=== PATIENT | male | born 1975 ===

== ENCOUNTER 2016-09-22 14:44 | Inpatient (IN) | payer BC, OTHER ==
[~2016-09-22] VITALS: Ht 177.8 cm; Wt 86.2 kg
--- NOTE | 2016-12-06 18:10 | NUR ---
Initial assessment note Pt oriented to unit by RECEIVING TANK OPERATOR. Pt ambulated with a steady gait. Skin check completed, no open skin noted. Initial VS: BP 129/92, HR 61, R 18, T 98.1*, SpO2 98% on RA, 0/10 pain. Height: 5'10'' Weight: 190 pounds. Pt has NKA, on a regular diet, full code. Pt denies any PMH, states that he does not know who his PCP is. Does not want a pna shot. Agrees to HIV test. Pt does not take any home medications. Denies any history of seizure. Pt states that he was in treatment 3 months ago. Pt states that he recently relapsed 2.5 weeks ago. Pt uses: heroin- 0.5 G inh daily x 2.5 weeks. Pt states that he first used at the age of 21, became a "heavy user" at the age of 35. Pt states that he only smokes cigarettes while he is in detox. Dr Medrano notified of admission. Pt was unable to provide a urine for a urine drug test at this time. Pt has no complaints, all needs addressed, will endorse SBAR to oncoming shift.
[2016-12-06 18:18] VITALS: BP 129/92
[2016-12-06 20:00] VITALS: BP 125/82
[2016-12-06 20:01] LABS: *AMPHETAMINE, URINE NEGATIVE (NEGATIVE); *BARBITURATE, URINE NEGATIVE (NEGATIVE); *CANNABINOID, URINE NEGATIVE (NEGATIVE); *COCCAINE, URINE NEGATIVE (NEGATIVE); *OPIATE, URINE POSITIVE (NEGATIVE); *PHENCYCLIDINE SCREEN,URINE NEGATIVE (NEGATIVE)
--- NOTE | 2016-12-06 20:15 | NUR ---
2014 ADMISSION NOTE: Patient fully admitted to room # 329A for Heroin withdrawal. Patient received awake, alert and ambulating back to his room from [facility]. Gait is steady and sure, though a bit slow. Patient responds to nurse's greeting and introduction with a very flat, " Okay, with good eye contact. Patient's color is pink and his skin is clean, warm, dry and intact. Multiple black ink tatoos noted on upper body and bilateral arms. Patient is oriented to person, place, day, date and his personal situation. Easily reoriented to time. Patient's lung sounds are clear bilaterally and active bowel sounds are noted X 4 abdominal Quads, per auscultation. Patient is 5 feet and 10 inches tall and he weighs 190 lbs. Patient denies any allergies or seizure history. Patient states further that he has no pre-existing medical or psychiatric conditions and he currently has no PCP. Patient denies any pain or any other discomforts at this time and he states that he has eaten a little and taken fluids ad arielle since arriving here at [facility] and he denies any gastric issue so far. Patient states that he is admitted this evening for daily Heroin use, 1/2 gram, which he smokes. Last use was this AM, 12/06/16, 1/2 gram. Patient states that he has been using heroin at this rate for the past 3 weeks, though he states that he has been using heroin for a total of 6 years, on and off. Patient denies using any other drugs, recreational or prescribed and he has brought no medications with him. Patient states that his longest period of sobriety was 7 months in 2015. Patient's treatment history is: 1) [facility], 90 days, [place], [place]. 2016 2) [facility], 4 months, [place] 2015 3) [facility], 3 weeks, [place] 2015 4) [facility], 30 days, [place], [place] 2014 5) [facility], 30 days, [place] 2014. Patient states that he does go to and he does have a Sponsor currently. Patient states that his internal motivator for getting clean is his family and he is determined to do that this admission. Patient is cooperative, verbally appropriate though overall mood/affect is very flat and slightly withdrawn. Patient is oriented to his room, nurse call light and his immediate surroundings. Patient voices no requests at this time and his condition is stable. Bed is locked and in lowest position, bed rails are up X 2 and call light within patient's easy reach.
[2016-12-06] MEDS ORDERED: diphenhydrAMINE 50 MG CAPSULE PO PRN (21:45)
[2016-12-06] MEDS ORDERED: ACETAMINOPHEN 325 MG TABLET PO PRN (21:45)
[2016-12-06] MEDS ORDERED: HYDROXYZINE PAMOATE 25 MG CAPSULE PO PRN (21:45)
[2016-12-06] MEDS ORDERED: LOPERAMIDE HCL 2 MG CAPSULE PO PRN ×2 (21:45)
[2016-12-06] MEDS ORDERED: METHOCARBAMOL 750 MG TABLET PO PRN (21:45)
[2016-12-06] MEDS ORDERED: IBUPROFEN 400 MG TABLET PO PRN (21:45)
[2016-12-06] MEDS ORDERED: BUPRENORPHINE HCL 2 MG TAB.SUBL SL PRN (21:45)
[2016-12-06] MEDS ORDERED: PROMETHAZINE HCL 25 MG/1 ML VIAL IM PRN (21:45)
[2016-12-06] MEDS ORDERED: ONDANSETRON ODT 4 MG TAB.RAPDIS SL PRN (21:45)
[2016-12-06] MEDS ORDERED: MIRALAX 17 GM POWD.PACK PO PRN (21:45)
[2016-12-06] MEDS ORDERED: MAG HYDROX/AL HYDROX/SIMETH 30 ML LIQUID UDC PO PRN (21:45)
[2016-12-06] MEDS ORDERED: CLONIDINE HCL 0.1 MG TABLET PO PRN (21:45)
[2016-12-06 23:12] LABS: ALANINE AMINOTRANSFERASE 48 U/L (16-63); ALBUMIN 3.9 g/dL (3.4-5.0); ALKALINE PHOSPHATASE 77 U/L (50-136); AMYLASE 35 U/L (25-115); ASPARTATE AMINOTRANSFERASE 25 U/L (15-37); BILIRUBIN,TOTAL 0.3 mg/dL (0.2-1.0); CARBON DIOXIDE 29 mmol/L (21-32); CHLORIDE 104 mmol/L (98-107); GFR 82 mL/min (>60); GLUCOSE 111 mg/dL (74-106); LIPASE 90 U/L (73-393); MAGNESIUM 1.9 mg/dL (1.8-2.4); POTASSIUM 3.8 mmol/L (3.5-5.1); SODIUM SERUM 139 mmol/L (136-145); TOTAL PROTEIN, SERUM 7.1 g/dL (6.4-8.2); UREA NITROGEN, BLOOD 18 mg/dL (7-18)
[2016-12-06 23:16] LABS: ETHANOL < 3 MG/DL (0-0)
[2016-12-06 23:18] LABS: BASOPHILS % (AUTO) 0.3 % (0.0-2.0); EOSINOPHILS # (AUTO) 0.4 K/uL (0.0-0.7); EOSINOPHILS % (AUTO) 5.9 % (0.0-7.0); HEMOGLOBIN 15.9 g/dL (14.0-18.0); LYMPHOCYTES # (AUTO) 1.8 K/uL (0.8-4.8); LYMPHOCYTES % (AUTO) 30.5 % (20.5-51.5); MEAN CORPUSCULAR HEMOGLOBIN 30.1 uug (27.0-31.0); MEAN CORPUSCULAR HGB CONC 35 g/dL (32.0-37.0); MEAN CORPUSCULAR VOLUME 85.1 fL (82.0-92.0); MONOCYTES # (AUTO) 0.3 K/uL (0.1-1.30); MONOCYTES % (AUTO) 4.2 % (0.0-11.0); NEUTROPHILS # (AUTO) 3.5 K/uL (1.8-8.9); NEUTROPHILS % (AUTO) 59.1 % (38.5-71.5); PLATELET COUNT (AUTO) 233 K/uL (150-450); RED BLOOD CELL COUNT(AUTO) 5.28 MIL/uL (4.70-6.10)
[2016-12-06 23:23] LABS: THYROID STIMULATING HORMONE 0.863 mIU/mL (0.358-3.740)
[2016-12-06 23:37] LABS: HIV-1 p24 ANTIGEN NON REACTIVE (NONREACTIVE); HIV-1/2 ANTIBODY NON REACTIVE (NONREACTIVE)
[2016-12-07] VITALS: BP 117/70
[2016-12-07 04:00] VITALS: BP 111/71
--- NOTE | 2016-12-07 06:30 | NUR ---
0630 Patient slept a total of 5 hours and his total p.o. intake was 902 ml. He had 3 voids and no stools at bathroom. No prn medications given this shift. V/SS afebrile, COWS 2. Patient is presently sleeping soundly in stable condition with eyes closed and respirations quiet, even and unlabored at 14.
[2016-12-07] MEDS ORDERED: ONDANSETRON 4 MG/2 ML VIAL IM PRN (07:15)
[2016-12-07 08:00] VITALS: BP 109/60
--- NOTE | 2016-12-07 08:15 | NUR ---
START OF SHIFT: RECEIVED PT LAYING IN BED WITH EYES CLOSED AND RESPIRATIONS EVEN AND UNLABORED. HE IS EASILY AROUSED AND STATES HE DOES NOT WANT THE MULTIVITAMIN AND DOES NOT WANT TO WAKE UP AND STATES HE NEEDS HIS SLEEP. COWS DEFERRED.BED LOCKED AND IN LOWEST POSITION. CALL ROUSE IN REACH. WILL CONTINUE TO MONITOR.
[2016-12-07] MEDS: MULTIVITAMINS,THERAPEUTIC TABLET PO SCH (08:51)
[2016-12-07] MEDS ORDERED: TUBERCULIN,PURIF.PROT.DERIV. 5 TU/0.1 ML TEST ID ONE (09:00)
--- NOTE | 2016-12-07 10:05 | NUR ---
PPD ADMINISTERED TO LFA. PT CONTINUES TO SLEEP. WILL CONTINUE TO MONITOR.
[2016-12-07 12:00] VITALS: BP 131/64
--- NOTE | 2016-12-07 13:20 | NUR ---
PT IS A/O X 4. HE C/O RESTLESSNESS,ANXIETY,CHILLS,SWEATS AND STOMACH CRAMPS. COWS 12. PRN SUBUTEX ADMINISTERED. WILL MONITOR EFFECTIVENESS.
--- NOTE | 2016-12-07 13:50 | NUR ---
PRN SUBUTEX EFFECTIVE. COWS NOW 10. WILL CONTINUE TO MONITOR.
[2016-12-07 16:00] VITALS: BP 120/75
[2016-12-07] MEDS ORDERED: diphenhydrAMINE 50 MG CAPSULE PO PRN (16:00)
[2016-12-07] MEDS: BUPRENORPHINE HCL 2 MG TAB.SUBL SL SCH ×2 (16:31→21:16)
--- NOTE | 2016-12-07 18:43 | NUR ---
START OF SHIFT NOTE Patient endorsed by outgoing shift nurse. SBAR report received. Patient is a 24 years old male admitted to [facility] on 12/03/2016 for Opioid Dependence, placed on 4 Day Subutex taper. Patient remains complained with treatment plan, medications, and diet regime. NKA, Regular Diet, Full Code, Fall Precautions. Patient denied History of Seizures. Patient denied HI/SI. Past Medical History: Hepatitis C, Substance Use. Patient reported that he use Heroin via IV 3 grams daily during 8 months. Last amount of 2,5 grams was used 12/02/2016. Past hospitalizations/Treatment History: [facility]: one month ago: > 30 days. [facility]: one month ago: > 30 days. Upon assessment patient is alert and oriented x4, speech is clear. COWS 6. Patient c/o increase anxiety, sweats, restlessness, bone and joint aches, stomach cramps. VS: T: 98.3; HR: 70; BP: 110/65; Room Air O2Sat: 95%; RR: 18. Breathing is unlabored and even. Lungs Sounds are clear. BS is active in all x 4 quadrants; Skin is warm and moist by touch. Patient has multiple old abrasion on face, back of neck, and left hand. No open wounds. Patient was educated for safety issues: keep bed in lowest position and locked, rails up x2. Patient returned his Knowledge back by verbalized understanding. All Safety met by hospital policy: Call Light within reach; Bed in lowest position and locked, rails up x2. Will continue to monitor. Addendum: 12/08/16 at 0001 by LISA SMILEY RN Wrong patient: Room 310
--- NOTE | 2016-12-07 18:49 | NUR ---
END OF SHIFT: PT SLEPT LATE THIS AM HE WANTED TO BE LEFT ALONE. HE REPORTED ANXIETY,CHILLS,SWEATS AND RESTLESSNESS WITH A COWS OF 12 AROUND 1300 AND INDUCTION PRN DOSE OF SUBUTEX GIVEN AND EFFECTIVE AEB COWS 10. STARTED PT ON TAPER WHICH STARTED AT 1700. HE STATES HE IS FEELING BETTER DUE TO SUBUTEX LAST COWS 4. HE STAYED IN HIS ROOM MOST OF SHIFT AND HAD VERY LITTLE INTERACTION WITH PEERS. HE CONTINUES TO PRESENT WITH BLUNTED AFFECT AND DEPRESSED MOOD. HE DENIES S/I AND H/I. WILL PASS SHIFT REPORT TO ONCOMING NIGHT NURSE.
--- NOTE | 2016-12-07 18:49 | NUR ---
START OF SHIFT NOTE Patient is a 41 years old male admitted to [facility] on 12/06/2013 for Opioid Dependence, placed on Subutex Taper. NKA, Regular Diet, Fall Precautions. Patient denied History of Seizures. Patient denied history of SI/HI. Past Medical History: Substance Use. Patient reported s Heroin Smokes gram daily during last three weeks, since 11/15/16. Last amount of gram was on 12/06/16. Recent Hospitalizations/Treatment History: "[facility], 90 days, [place], [place], 2016". "[facility], 4 months, [place], [place], 2015". "[facility], # weeks, [place], [place], 2015". "[facility], 30 days, [place], [place], 2014". "[facility], 30 days, [place], 2014". Upon assessment patient is alert and oriented x4, speech is soft. COWS 6. Patient reports increase anxious; mild diffuse discomfort; Patient reported of Nausea. Patient denied Vomitted and Diarrhea. VS:T: 98.0; HR:64; BP:105/67; Room Air O2Sat: 99%; RR: 19. Breathing is unlabored and even. Lungs Sounds are clear. BS is active in all x 4 quadrants. Last BMs today at 10:00. Skin is intact, warm and moist by touch. Patient was educated for safety issues: keep bed in lowest position and locked, rails up x2. Patient returned his Knowledge back by verbalized understanding. All Safety met by hospital policy: Call Light within reach; Bed in lowest position and locked, rails up x2. Will continue to monitor.
[2016-12-07 20:00] VITALS: BP 105/67
[2016-12-08] VITALS: BP 127/81
[2016-12-08 04:00] VITALS: BP 93/55
[2016-12-08 04:06] LABS: HCV AB <0.1 s/co ratio (0.0-0.9); HEPATITIS B CORE AB, IgM Negative (Negative); HEPATITIS B SURFACE AG Negative (Negative)
--- NOTE | 2016-12-08 07:18 | NUR ---
END OF SHIFT NOTE Patient is a 41 years old male admitted to [facility] on 12/06/2013 for Opioid Dependence, placed on Subutex Taper. NKA, Regular Diet, Fall Precautions. Patient denied History of Seizures. Patient denied history of SI/HI. COWS decreased from 6 to 4. Patient presented with anxious; restlessness, mild diffuse discomfort; sweating. VS: T: 98.2; HR:59; BP:93/55; Room Air O2Sat: 99%; RR: 14. Patient participated in activities groups. Patient remains compliant with treatment plan, medications and diet regime. No PRN Medications was administrated during my shift. Patient slept 7 hours; Intake: 946ml; Voided x1. All Safety met by hospital policy: Call Light within reach; Bed in lowest position and locked, rails up x2. Patient endorsed to day shift nurse in stable condition. SBAR report given.
[2016-12-08 08:00] VITALS: BP 120/79
--- NOTE | 2016-12-08 08:00 | NUR ---
START OF SHIFT; RECEIVED PT LAYING IN BED A/O X 4. HE PRESENTS WITH IRRITABLE MOOD AND CONGRUENT AFFECT. HE REPORTS NAUSEA,BODY ACHES,CHILLS,RESTLESSNESS AND ANXIETY. HE REFUSED MVI DUE TO NAUSEA AND STATES " IT WILL UPSET MY STOMACH MORE". PRN ZOFRAN GIVEN FOR NAUSEA. HE IS ALSO REFUSING BREAKFAST.SUBUTEX TAPER IN PROGRESS. COWS 8. WILL MONITOR EFFECTIVENESS OF PRN MEDICATION. WILL CONTINUE TO MONITOR AND PROVIDE SAFE AND SUPPORTIVE ENVIRONMENT.
--- NOTE | 2016-12-08 08:40 | NUR ---
PRN ZOFRAN EFFECTIVE. PT STATES ZOFRAN HELPED HIS NAUSEA AND IT HAS SUBSIDED.
[2016-12-08] MEDS: MULTIVITAMINS,THERAPEUTIC TABLET PO SCH (08:49)
[2016-12-08] MEDS ORDERED: BUPRENORPHINE HCL 2 MG TAB.SUBL SL SCH (09:00)
[2016-12-08 12:00] VITALS: BP 116/65
[2016-12-08] MEDS ORDERED: TRAZODONE 50 MG TABLET PO PRN (12:00)
[2016-12-08] MEDS: BUPRENORPHINE HCL 2 MG TAB.SUBL SL SCH ×2 (14:15→20:08)
[2016-12-08 16:00] VITALS: BP 107/69
--- NOTE | 2016-12-08 19:03 | NUR ---
END OF SHIFT: PT CONTINUES ON SUBUTEX TAPER. HE C/O BODY ACHES AND CHILLS ALONG WITH ANXIETY AND RESTLESSNESS THIS AM. COWS 8 THIS AM. AFFECT IS LESS GUARDED AND HE STATES THE SUBUTEX IS EFFECTIVE. LAST COWS 4. HE INTERACTED WITH PEERS AND ATTENDED ACTIVITIES AND GROUPS. HE VERBALLY EXPRESSED MOTIVATION TOWARD RECOVERY AND IS COMPLIANT WITH MEDS AND TREATMENT PLAN.PPD TO BE READ ON 12/09. ENCOURAGED PROPER NUTRITION AND INCREASED FLUIDS. WILL PASS SHIFT REPORT TO ONCOMING NIGHT NURSE.
[2016-12-08 20:00] VITALS: BP 119/78
--- NOTE | 2016-12-08 20:00 | NUR ---
Start of Shift Pt is a 41 year old male admitted for Opiate dependence, placed on Subutex taper. Pt reported using gram/daily via smoke. NKA, regular diet, fall precautions and full code PMH: pt denies past medical history. Upon assessment, Pt reports anxiety, chills, muscle aches, respirations unlabored, denies SOB/chest pain, skin warm/mildly moist, noted with moderate sweat. Pt denies n/v/d, bowel sounds active x4, abdomen soft. Safety measures in place, Will continue to monitor.
[2016-12-09] VITALS: BP 104/60
--- NOTE | 2016-12-09 | NUR ---
Vital Signs - PRN Administration BP 104/60, pulse 55, SpO2 98%, respirations 16, temp 97.8, no reports of pain 0/10, CIWA 4. Trazodone 50mg PRN administered for sleep. Safety measures in place. Will continue to monitor.
--- NOTE | 2016-12-09 01:00 | NUR ---
PRN Reassessment Upon reassessment, pt is sleeping, Trazodone effective. Respirations unlabored - no distress noted. Safety measures in place. Will continue to monitor.
--- NOTE | 2016-12-09 04:00 | NUR ---
Pt refused to be woken up for VS at this time. Pt was encouraged x3 risks and benefits explained pt continued to refuse. COWS deferred d/t pt sleeping to assess while awake as ordered. Safety measures in place. Will continue to monitor.
--- NOTE | 2016-12-09 07:00 | NUR ---
End of Shift Pt is a 41 year old male admitted for Opiate dependence, placed on Subutex taper. Pt reported using gram/daily via smoke. NKA, regular diet, fall precautions and full code PMH: pt denies past medical history. During shift, pt presented with anxiety, chills, muscle aches, skin flushed/moist/sweaty scheduled taper medications administered, effective in management of s/s of withdrawal as reported by pt. CIWA 5 decreased to CIWA 4. Trazodone 50mg PRN administered for sleep, effective. Pt slept for 7 hours, intake of 355 ml PO and voids x1. VS stable, Pt continues on Subutex taper. Safety measures in place, call light within reach, side rails up x2, bed locked and in low position. Endorsed to day shift nurse.
--- NOTE | 2016-12-09 07:01 | NUR ---
Start of Shift Endorsement received from nightshift nurse. Pt is a 41 y/o male admitted for heroin dependence. Pt has been placed on a 3 week taper, pt is tolerating the taper well AEB COWS 4. PT received PRN Trazodone to help with sleep, medication was effective AEB pt reporting 7 hours of sleep. VS WNL, Full Code. PT is alert and oriented x4. Pt is in STABLE condition at this time. Remains compliant with medication and diet regimen. All needs have been met, All safety measures in place per hospital policy. Bed in lowest position, side rails up x2, call-light within reach. Will continue to monitor Addendum: 12/09/16 at 1858 by HAYDEE ALEMAN RN Pt is on a 4 day Subutex taper not 3 week taper.
[2016-12-09 08:00] VITALS: BP 107/57
[2016-12-09] MEDS: MULTIVITAMINS,THERAPEUTIC TABLET PO SCH (09:42)
[2016-12-09] MEDS: BUPRENORPHINE HCL 2 MG TAB.SUBL SL SCH ×3 (09:42→20:35)
[2016-12-09 12:00] VITALS: BP 127/61
[2016-12-09 16:00] VITALS: BP 120/72
[2016-12-09] MEDS: ESCITALOPRAM OXALATE 10 MG TABLET PO SCH (16:26)
--- NOTE | 2016-12-09 18:55 | NUR ---
End of Shift Endorsement given to nightshift nurse. Pt is a 41 y/o male admitted for heroin dependence. Pt has been placed on a 4 day Subutex taper, pt is tolerating the taper well AEB COWS 3. PT did not receive any PRN medications. Educated pt on importance of developing the necessary tools for sobriety, as well as identifying triggers that cause him to relax. Pt reports readiness for sobriety. Pt participated in groups and activities. Intake: 2100ml, Void x5, BM x1. VS WNL, Full Code. PT is alert and oriented x4. Pt is in STABLE condition at this time. Remains compliant with medication and diet regimen. All needs have been met, All safety measures in place per hospital policy. Bed in lowest position, side rails up x2, call-light within reach. Will continue to monitor
--- NOTE | 2016-12-09 19:14 | NUR ---
Start of shift note Received report from day shift nurse. Pt is a 41 yo male, A+OX4, presenting to [facility] for Opiate dependence. Pt has NKA, is Full Code status, and on Regular diet. Pt is on Fall precautions. Pt denies any medical HX. Pt is on 4 day Subutex taper, tolerated well. No s/s of distress noted at this time. Respirations even and unlabored. Will continue to monitor.
[2016-12-09 20:17] VITALS: BP 125/74
[2016-12-09] MEDS: MAGNESIUM HYDROXIDE 30 ML LIQUID UDC PO PRN (20:45)
--- NOTE | 2016-12-09 20:47 | NUR ---
PRN MOM Pt c/o constipation and requested for PRN MOM. Medication given and tolerated well. Will reassess within 1 HR. Will continue to monitor.
--- NOTE | 2016-12-09 21:45 | NUR ---
PRN MOM Reassessment Medication effective. No s/s of ASE/distress noted at this time. Respirations even and unlabored. Will continue to monitor.
[2016-12-10] VITALS (8 sets, daily range): BP systolic 92–133; BP diastolic 45–87
--- NOTE | 2016-12-10 07:05 | NUR ---
Start of Shift Endorsement received from nightshift nurse. Pt is a 41 y/o male admitted for heroin dependence. Pt has been placed on a 4 day Subutex taper, pt is tolerating the taper well AEB COWS 1. Pt is expected to complete the taper today. Pt received PRN milk of magnesium for constipation, medication was effective, pt reports having a BM. Pt slept 7 hours. VS WNL, Full Code. PT is alert and oriented x4. Pt is in STABLE condition at this time. Remains compliant with medication and diet regimen. All needs have been met, All safety measures in place per hospital policy. Bed in lowest position, side rails up x2, call-light within reach. Will continue to monitor
[2016-12-10] MEDS ORDERED: BUPRENORPHINE HCL 2 MG TAB.SUBL SL SCH (09:00)
[2016-12-10] MEDS: ESCITALOPRAM OXALATE 10 MG TABLET PO SCH (09:08)
[2016-12-10] MEDS: MULTIVITAMINS,THERAPEUTIC TABLET PO SCH (09:08)
[2016-12-10] MEDS ORDERED: TRAZODONE 50 MG TABLET PO PRN (09:45)
[2016-12-10 14:26] LABS: *AMPHETAMINE, URINE NEGATIVE (NEGATIVE); *BARBITURATE, URINE NEGATIVE (NEGATIVE); *CANNABINOID, URINE NEGATIVE (NEGATIVE); *COCCAINE, URINE NEGATIVE (NEGATIVE); *OPIATE, URINE NEGATIVE (NEGATIVE); *PHENCYCLIDINE SCREEN,URINE NEGATIVE (NEGATIVE)
--- NOTE | 2016-12-10 15:05 | NUR ---
Transfer of Care Endorsed Pt to [place].
--- NOTE | 2016-12-10 15:05 | NUR ---
Continuation of Care Patient Received. Patient is in his room, awake, alert and verbally responsive. Breathing even and non labored. No signs of pain or discomfort noted. Patient is a 41 year old male, admitted on 12/06/16 for Opiate Dependence. Patient received a Subutex taper that has completed. Patient verbalizes no known allergies, wishes to be full code, following a regular diet, placed on fall precautions. Skin is noted intact. Patient is set for discharge tomorrow 12/11/13. No PRN medications administered. All needs attended to promptly. Will continue plan of care as ordered.
[2016-12-10] MEDS ORDERED: ESCI10TA PO (15:27)
[2016-12-10] MEDS: MAGNESIUM HYDROXIDE 30 ML LIQUID UDC PO PRN (16:01)
--- NOTE | 2016-12-10 16:04 | NUR ---
PRN Medication Administration Patient verbalized feelings of constipation. patient states "I feel like I need to go to the bathroom but I cant." Encouraged patient to drink plenty of fluids. Patient verbalized understanding. PRN MOM administered. Will continue to monitor for effectiveness of medication.
--- NOTE | 2016-12-10 23:50 | NUR ---
PRN Medication Administration Patient is verbalizing inability of falling asleep. PRN Trazodone administered. Will continue to monitor for effectiveness.
[2016-12-11 00:20] VITALS: BP 105/55
--- NOTE | 2016-12-11 04:39 | NUR ---
Vitals and COWS Attempted to render vitals at this time and patient refused. patient verbalized "let me sleep." Risks and benefits explained and patient still refused. Patient Respirations noted at be 14. COWS not able to be completed as this time. Will continue to monitor. Addendum: 12/11/16 at 0441 by OSCAR WALKER LVN Amended: Links added.
--- NOTE | 2016-12-11 07:08 | NUR ---
End of Shift Patient is in his room sleeping. Breathing even and non labored. No signs of pain or discomfort. Patient is a 41 year old male, admitted on 12/06/16 for Opiate Dependence. Patient received a Subutex taper that has completed. Patient verbalizes no known allergies, wishes to be full code, following a regular diet, placed on fall precautions. Skin is noted intact. Patient is set for discharge today 12/11/16. PRN Trazodone administered. Patient noted to sleep throughout shift, including refusal of 0400 am vitals. PRN trazodone noted to be effective. PRN MOM administered. Will endorse to am for follow up. All needs attended to promptly. Will endorse to continue plan of care as ordered.
--- NOTE | 2016-12-11 07:22 | NUR ---
Start Of Shift Received report from night shift manager. Pt is a 41 year old male admitted n 12/06/16 for Heroin dependency. Pt is full code regular diet on fall precautions reports no known allergies to food or medication. Denies any PMH. Skin intact. Pt completed his 4 day Subutex taper tolerated well. Pt is to be discharged today. Pt received PRN MOM and trazodone last night, medication was effective per night shift manager nurse. Pt's last COWS score was a 1 taken at 2100. Pt slept a total of 5 hours last night. All safety measures in place will continue to monitor and provide support.
[2016-12-11 08:00] VITALS: BP 108/59
[2016-12-11] MEDS: MULTIVITAMINS,THERAPEUTIC TABLET PO SCH (09:13)
[2016-12-11] MEDS: ESCITALOPRAM OXALATE 10 MG TABLET PO SCH (09:13)
--- NOTE | 2016-12-11 09:45 | NUR ---
DISCHARGE NOTE Pt is in stable condition. Vitals WNL, Pt alert and oriented x4, skin intact, Pt denies any SI/HI. All discharge paperwork completed dated and signed. Pt educated about discharge instructions, what to do after discharge when to contact MD as well as the s/s reportable to MD, pt verbalized understanding. Pt was provided with all of his discharge paperwork. Pt's last COWS:1 taken at 0800. Pt was discharged from [facility] on 12/11/16 at 0945. Pt left the building with all of his belongings, prescriptions. MD and psychiatrist have been contacted notified and aware of pt's d/c.
== END 2016-12-11 09:40 | disposition other institution (70) | DRG 895 ==
LOC: SRC 12-06 17:14
PROVIDERS: ADMIT Internal Medicine; ATTEND Internal Medicine
DX: F11.23 Opioid dependence with withdrawal (principal); F17.210 Nicotine dependence, cigarettes, uncomplicated
CPT/HCPCS: 36415; 70030-TC; 71010; 80307; 80361; 83690; 83735; 84443; 85025; 86580; 86592; 86705; 86803; 87340; 87806; A4663; G6040-TC; Q0162